=== PATIENT | male | born 1985 | race Caucasian/White ===

== ENCOUNTER 2019-06-16 19:44 | Emergency (ER) | payer OTHER ==
[~2019-06-16] VITALS: Ht 167.6 cm; Wt 70.3 kg
[2019-06-16 20:03] VITALS: BP 132/79
--- NOTE | 2019-06-16 20:09 | NUR ---
PT AMBULATED TO LOBBY
--- NOTE | 2019-06-16 21:09 | NUR ---
PT AMBULATED TO ER [facility]
[2019-06-16] MEDS ORDERED: KETOROLAC 60 MG/2 ML VIAL IM ONE (21:30)
--- NOTE | 2019-06-16 21:30 | NUR ---
34/M PRESENTS TO ED, C/O EXACERBATION OF L UPPER BACK PAIN, X2 YEARS, WORSENING X1 DAY S/P LIFTING SOMETHING TODAY. PT AWAKE AND ALERT, SKIN NORMAL COLOR WARM AND DRY, RR EVEN AND UNLABORED. 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
[2019-06-16 22:09] VITALS: BP 132/79
--- NOTE | 2019-06-16 22:09 | NUR ---
Patient discharged by Dr Hector with last VS stable. Written and verbal after care instructions given and explained by Dr Hector. Patient alert, oriented and verbalized understanding of instructions. Ambulatory with steady gait. All questions addressed prior to discharge by Dr Hector. ID band removed by Dr Hector. Patient advised to follow up with PMD. Rx of NAPROSYN given by Dr Hector. Patient educated on indication of medication including possible reaction and side effects by Dr Hector. Opportunity to ask questions provided and answered by Dr Hector.
== END 2019-06-16 22:09 | disposition home or self-care (01) ==
LOC: MED 19:44
DX: S43.82XA Sprain of other specified parts of left shoulder girdle, initial encounter (principal); Z88.0 Allergy status to penicillin; X58.XXXA Exposure to other specified factors, initial encounter; Y93.89 Activity, other specified; Y92.89 Other specified places as the place of occurrence of the external cause; Y99.8 Other external cause status
CPT/HCPCS: 96372; 99283; J1885

== ENCOUNTER 2020-03-17 06:08 | Day surgery (SDC) | payer MEDICAID, SELFPAY ==
[~2020-03-17] VITALS: Ht 167.6 cm; Wt 70.3 kg
[2020-03-17] MEDS ORDERED: fentaNYL citrate 0.05 MG/ML VIAL ONE (07:54)
[2020-03-17] MEDS ORDERED: LIDOCAINE 2% 100 MG/5 ML UJET TP ONE ×2 (07:55→16:50)
[2020-03-17] MEDS ORDERED: MIDAZOLAM 2 MG/2 ML VIAL ONE (07:55)
[2020-03-17] MEDS ORDERED: fentaNYL citrate 0.05 MG/ML VIAL IVP ONE (16:25)
[2020-03-17] MEDS ORDERED: MIDAZOLAM 2 MG/2 ML VIAL IVP ONE (16:25)
== END 2020-03-17 09:20 | disposition home or self-care (01) ==
LOC: MMU 06:08 → MDS 06:08
PROVIDERS: ATTEND Internal Medicine Gastroenterology
DX: K62.5 Hemorrhage of anus and rectum (principal); K64.9 Unspecified hemorrhoids; K21.00 Gastro-esophageal reflux disease with esophagitis, without bleeding; Z87.891 Personal history of nicotine dependence; Z88.0 Allergy status to penicillin; Z20.828 Contact with and (suspected) exposure to other viral communicable diseases
CPT/HCPCS: 43235; 45378; J2250; J3010; U0003

== ENCOUNTER 2021-02-15 10:47 | Day surgery (SDC) | payer MEDICAID, SELFPAY ==
[~2021-02-15] VITALS: Ht 167.6 cm; Wt 72.6 kg
[2021-02-15] MEDS ORDERED: GELATIN SPONGE 100 1 SPG TP ONE ×2 (12:11)
[2021-02-15] MEDS ORDERED: PROPOFOL 200 MG/20 ML VIAL IV ONE (12:20)
[2021-02-15] MEDS ORDERED: SEVOFLURANE 250 ML BTL INH ONE (12:20)
[2021-02-15] MEDS ORDERED: fentaNYL citrate 0.05 MG/ML VIAL ONE (12:20)
[2021-02-15] MEDS ORDERED: ROCURONIUM 50 MG/5 ML VIAL IV ONE (12:21)
[2021-02-15] MEDS ORDERED: MIDAZOLAM 2 MG/2 ML VIAL ONE (12:21)
[2021-02-15] MEDS ORDERED: SUCCINYLCHOLINE CHLORIDE 200 MG/10 ML VIAL IVP ONE (12:21)
[2021-02-15] MEDS ORDERED: METOCLOPRAMIDE 10 MG/2 ML INJ VIAL ONE (12:39)
[2021-02-15] MEDS ORDERED: DEXAMETHASONE 4 MG/ML VIAL ONE (12:39)
[2021-02-15] MEDS ORDERED: ONDANSETRON 4 MG/2 ML VIAL ONE (12:39)
[2021-02-15] MEDS ORDERED: KETOROLAC 60 MG/2 ML VIAL IM ONE (12:52)
[2021-02-15] MEDS ORDERED: HYDROmorphone 1 MG/ML AMP IVP PRN (13:00)
[2021-02-15] MEDS ORDERED: ONDANSETRON 4 MG/2 ML VIAL IVP PRN (13:00)
== END 2021-02-15 14:45 | disposition home or self-care (01) ==
LOC: MDS 10:47 → MFCC 10:49 → MDS 14:45
PROVIDERS: ATTEND Surgery
DX: K64.2 Third degree hemorrhoids (principal); K21.9 Gastro-esophageal reflux disease without esophagitis; Z88.0 Allergy status to penicillin; Z79.899 Other long term (current) drug therapy
CPT/HCPCS: 46260; 71045; 87426; J0330; J1100; J1885; J2250; J2405; J2704; J2765; J3010; J3490; J7120